=== PATIENT | male | born 1995 | race Caucasian/White ===

== ENCOUNTER 2019-04-22 05:21 | Emergency (ER) | payer OTHER ==
[2019-04-22 05:32] VITALS: RESP 18
[2019-04-22] MEDS ORDERED: SODIUM CHLORIDE 0.9% 1,000 ML IV STA (05:57)
--- NOTE | 2019-04-22 06:01 | ED ---
Syncope HPI - General Chief Complaint: Syncope Stated Complaint: Sycope/Seizure Time Seen by Provider: 04/22/19 05:50 Source: patient, family Mode of arrival: ambulatory Limitations: no limitations - History of Present Illness Initial Comments: This patient is 24-year-old man who presents to be evaluated after syncopal episode. The patient states that he had gotten up to use the bathroom this morning and then had passed out. He had been feeling lightheaded prior to this. Patient states that he had actually lowered himself to his knee because he felt funny and then ended up passing out. Was observed by bystanders and was on the order of about 30 seconds. There was no tonic-clonic activity. There was no postictal period. Patient states that he been feeling a bit nauseated and had not eaten dinner last night though he had a normal breakfast and lunch. Patient did not have any vomiting. No bloody or dark tarry stools. No chest pain, pa lpitations, or dyspnea. MD Complaint: loss of consciousness, collapsed Onset/Timin -: hour(s) Prodromal Symptoms: lightheaded Duration of Episode: 30 -: second(s) Injuries Sustained Associated with Event: None Current Symptoms: back to baseline Context: standing up Treatments Prior to Arrival: none - Related Data Allergies Allergy/AdvReac Type Severity Reaction Status Date / Time No Known Allergies Allergy Verified 04/22/19 05:33 Review of Systems ROS Statement: Those systems with pertinent positive or pertinent negative responses have been documented in the HPI. ROS Other: All systems not noted in ROS Statement are negative. Constitutional: Denies: fever, chills Respiratory: Denies: cough, dyspnea Cardiovascular: Reports: syncope. Denies: chest pain, palpitations, orthopnea Gastrointestinal: Reports: nausea. Denies: abdominal pain, vomiting, melena, hematochezia Genitourinary: Denies: dysuria, hematuria Musculoskeletal: Denies: back pain Skin: Denies: rash Neurological: Denies: headache, weakness, numbness Past Medical History Past Medical History: No Reported History History of Any Multi-Drug Resistant Organisms: None Reported Past Surgical History: No Surgical Hx Reported Past Psychological History: No Psychological Hx Reported Smoking Status: Never smoker Past Alcohol Use History: None Reported Past Drug Use History: Marijuana General Exam Limitations: no limitations General appearance: alert, in no apparent distress Head exam: Present: atraumatic, normocephalic Eye exam: Present: normal appearance. Absent: scleral icterus, conjunctival injection ENT exam: Present: normal oropharynx Neck exam: Present: normal inspection, full ROM Respiratory exam: Present: normal lung sounds bilaterally. Absent: respiratory distress, wheezes, rales, rhonchi, stridor Cardiovascular Exam: Present: regular rate, normal rhythm, normal heart sounds. Absent: systolic murmur, diastolic murmur, rubs, gallop GI/Abdominal exam: Present: soft. Absent: distended, tenderness, guarding, rebound, rigid, mass Extremities exam: Present: normal inspection, normal capillary refill. Absent: pedal edema, calf tenderness Back exam: Present: normal inspection. Absent: CVA tenderness (R), CVA tenderness (L) Neurological exam: Present: alert, oriented X3, CN II-XII intact. Absent: motor sensory deficit Skin exam: Present: warm, dry, intact, normal color. Absent: rash Course Vital Signs 04/22/19 05:28 Temperature 97.9 F Pulse Rate 80 Respiratory 18 Rate Blood Pressure 115/68 O2 Sat by Pulse 100 Oximetry EKG Findings - EKG Results: EKG: interpreted by ERMD, sinus rhythm (With sinus arrhythmia, rate 58 bpm), normal axis, normal QRS, normal ST/T EKG shows: bradycardia Disposition Clinical Impression: Vasovagal syncope, Shortened [place] interval Disposition: HOME SELF-CARE Condition: Good Instructions (If sedation given, give patient instructions): Syncope (ED) Is patient prescribed a controlled substance at d/c from ED?: No Referrals: Donaldo Rosas MD [Primary Care Provider] - 1-2 days Christopher Eckert MD [STAFF PHYSICIAN] - 1-2 days
[2019-04-22 06:21] LABS: Basophils % (A) 1 %; Eosinophils # (A) 0.1 k/uL (0-0.7); Eosinophils % (A) 2 %; HCT 41.4 % (39.0-53.0); HGB 13.9 gm/dL (13.0-17.5); Lymphocytes # (A) 1.9 k/uL (1.0-4.8); Lymphocytes % (A) 39 %; MCH 29.4 pg (25.0-35.0); MCHC 33.5 g/dL (31.0-37.0); MCV 87.8 fL (80.0-100.0); Mean Platelet Volume 7.2; Monocytes # (A) 0.3 k/uL (0-1.0); Monocytes % (A) 5 %; Neutrophils # (A) 2.5 k/uL (1.3-7.7); Neutrophils % (A) 52 %; Platelet Count 184 k/uL (150-450); RBC 4.72 m/uL (4.30-5.90); RDW 12.8 % (11.5-15.5); WBC 4.9 k/uL (3.8-10.6)
[2019-04-22 06:41] LABS: ALT 17 U/L (21-72); AST 18 U/L (17-59); Albumin 4.5 g/dL (3.5-5.0); Alkaline Phosphatase 51 U/L (38-126); Anion Gap 9 mmol/L; Blood Urea Nitrogen 12 mg/dL (9-20); Calcium 9.5 mg/dL (8.4-10.2); Carbon Dioxide 28 mmol/L (22-30); Chloride 104 mmol/L (98-107); Glucose 103 mg/dL (74-99); Magnesium 1.8 mg/dL (1.6-2.3); Potassium 3.6 mmol/L (3.5-5.1); Sodium 141 mmol/L (137-145); Total Bilirubin 0.5 mg/dL (0.2-1.3)
[2019-04-22 06:58] LABS: Appearance,Urine Cloudy (Clear); Bacteria,Urine Rare /hpf; Bilirubin,Urine Negative (Negative); Blood,Urine Negative (Negative); Color,Urine Yellow; Glucose,Urine (UA) Negative (Negative); Ketones,Urine Negative (Negative); Leukocyte Esterase,Urine Negative (Negative); Mucus,Urine Many /hpf; Nitrite,Urine Negative (Negative); Protein,Urine Negative (Negative); Specific Gravity,Urine 1.018 (1.001-1.035); Squamous Epithelial Cell,Urine <1 /hpf (0-4); Urobilinogen,Urine <2.0 mg/dL (<2.0); WBC,Urine 1 /hpf (0-5)
--- NOTE | 2019-04-22 07:26 | XR ---
EXAMINATION TYPE: XR chest 1V portable DATE OF EXAM: 04/22/2019 HISTORY: syncope. REFERENCE: NONE. FINDINGS: The lungs are clear. Pleural spaces are clear. The heart is not enlarged. IMPRESSION: NO ACTIVE INTRATHORACIC DISEASE.
[2019-04-22 07:51] VITALS: BP 114/75; PULSE 64; TEMP 98.8
== END 2019-04-22 07:50 | disposition home or self-care (01) ==
LOC: EC 05:21
DX: R55 Syncope and collapse (principal); R94.31 Abnormal electrocardiogram [ECG] [EKG]; R42 Dizziness and giddiness; R56.9 Unspecified convulsions
CPT/HCPCS: 36415; 71045; 80053; 81001; 83735; 84484; 85025; 85379; 93005; 96360; 96361; 99284

== ENCOUNTER 2019-06-08 05:58 | Emergency (ER) | payer OTHER ==
[2019-06-08 06:36] VITALS: RESP 16
[2019-06-08] MEDS ORDERED: LORazepam 1 MG TAB PO STA (07:38)
--- NOTE | 2019-06-08 07:39 | ED ---
General Adult HPI - General Chief complaint: Anxiety Stated complaint: Insomnia/Discomfort Time Seen by Provider: 06/08/19 07:00 Source: patient, RN notes reviewed Mode of arrival: ambulatory Limitations: no limitations - History of Present Illness Initial comments: This is a 24-year-old male who presents emergency Department complaining of having some weird feelings in his body and he was pre-confident home that something bad was going on. Patient states he does have a panic and anxiety problem but states it is usually under control. Patient states he was unable to sleep he kept thinking about his fatigue and some of the tingling sensations he was having he decided to come to the emergency department. Patient states he also was nauseated home. Patient states currently has no symptoms whatsoever. Recent denies any headache currently patient denies numbness weakness. Patient denies any chest pain difficulty breathing shortness of breath. Patient denies any fever chills per patient denies abdominal pain patient denies nausea vomiting diarrhea. - Related Data Allergies Allergy/AdvReac Type Severity Reaction Status Date / Time No Known Allergies Allergy Verified 04/22/19 05:33 Review of Systems ROS Statement: Those systems with pertinent positive or pertinent negative responses have been documented in the HPI. ROS Other: All systems not noted in ROS Statement are negative. Past Medical History Past Medical History: No Reported History History of Any Multi-Drug Resistant Organisms: None Reported Past Surgical History: No Surgical Hx Reported Past Psychological History: No Psychological Hx Reported Smoking Status: Never smoker Past Alcohol Use History: None Reported Past Drug Use History: Marijuana General Exam - General Exam Comments Initial Comments: GENERAL: Patient is well-developed and well-nourished. Patient is nontoxic and well- hydrated and is in no acute distress. ENT: Neck is soft and supple. No significant lymphadenopathy is noted. Oropharynx is clear. Moist mucous membranes. Neck has full range of motion without eliciting any pain. EYES: The sclera were anicteric and conjunctiva were pink and moist. Extraocular movements were intact and pupils were equal round and reactive to light. Eyelids were unremarkable. PULMONARY: Unlabored respirations. Good breath sounds bilaterally. No audible rales rhonchi or wheezing was noted. CARDIOVASCULAR: There is a regular rate and rhythm without any murmurs gallops or rubs. ABDOMEN: Soft and nontender with normal bowel sounds. No palpable organomegaly was noted. There is no palpable pulsatile mass. SKIN: Skin is clear with no lesions or rashes and otherwise unremarkable. NEUROLOGIC: Patient is alert and oriented x3. Cranial nerves II through XII are grossly int act. Motor and sensory are also intact. Normal speech, volume and content. Symmetrical smile. MUSCULOSKELETAL: Normal extremities with adequate strength and full range of motion. No lower extremity swelling or edema. No calf tenderness. LYMPHATICS: No significant lymphadenopathy is noted PSYCHIATRIC: Mildly anxious Limitations: no limitations Course Vital Signs 06/08/19 06:31 Temperature 97.9 F Pulse Rate 98 Respiratory 16 Rate Blood Pressure 108/77 O2 Sat by Pulse 98 Oximetry Disposition Clinical Impression: Acute anxiety Disposition: HOME SELF-CARE Condition: Good Instructions (If sedation given, give patient instructions): Generalized Anxiety Disorder (ED) Is patient prescribed a controlled substance at d/c from ED?: No Referrals: Donaldo Rosas MD [Primary Care Provider] - 1-2 days Time of Disposition: 07:39
[2019-06-08 07:55] VITALS: BP 120/85; PULSE 76; TEMP 98
== END 2019-06-08 07:53 | disposition home or self-care (01) ==
LOC: EC 05:58
DX: F41.9 Anxiety disorder, unspecified (principal)
CPT/HCPCS: 99283

== ENCOUNTER 2021-02-05 12:57 | Emergency (ER) | payer OTHER ==
[2021-02-05 13:03] VITALS: BP 114/72; PULSE 95; RESP 16; TEMP 98
[2021-02-05] MEDS ORDERED: ONDANSETRON ODT 4 MG TAB PO STA (13:23)
[2021-02-05] MEDS ORDERED: ACETAMINOPHEN TAB 500 MG TAB PO STA (13:23)
--- NOTE | 2021-02-05 13:53 | ED ---
General Adult HPI - General Chief complaint: Headache Stated complaint: Dizziness,Headache Source: patient Mode of arrival: ambulatory Limitations: no limitations - History of Present Illness Initial comments: 25-year-old male with past history presents emergency Department with reported headaches and visual changes. Patient reports to a head injury on Wednesday morning. Was attempting to get ready for the day when he hit his head on the door frame. Denies loss of consciousness. Reports to a mild headache which has progressively gotten worse. Also admits to vertiginous symptoms. Was attempting to play videogames with his friend last night and had to stop as he was getting dizzy. Admits to nausea without vomiting. Has not taken any medications for his headache. Patient has not any blood thinners. No unilateral numbness or weakness in his arms or legs. No gait difficulties. No neck pain. No other alleviating, precipitating or modifying. - Related Data Home Medications Medication Instructions Recorded Confirmed Multivit-Min/Folic/Vit K/Lycop 1 tab PO DAILY 06/08/19 06/08/19 [Men's Multivitamin Tablet] Allergies Allergy/AdvReac Type Severity Reaction Status Date / Time FRUIT Allergy Itching Uncoded 02/05/21 13:02 Review of Systems ROS Statement: Those systems with pertinent positive or pertinent negative responses have been documented in the HPI. ROS Other: All systems not noted in ROS Statement are negative. Past Medical History Past Medical History: No Reported History History of Any Multi-Drug Resistant Organisms: None Reported Past Surgical History: No Surgical Hx Reported Past Psychological History: Anxiety, Panic Disorder Smoking Status: Former smoker Past Alcohol Use History: Rare Past Drug Use History: Marijuana General Exam Limitations: no limitations General appearance: alert, in no apparent distress Head exam: Present: atraumatic, normocephalic, normal inspection Eye exam: Present: normal appearance, PERRL, EOMI. Absent: scleral icterus, conjunctival injection, periorbital swelling ENT exam: Present: normal exam, mucous membranes moist Neck exam: Present: normal inspection. Absent: tenderness, meningismus, lymphadenopathy Respiratory exam: Present: normal lung sounds bilaterally. Absent: respiratory distress, wheezes, rales, rhonchi, stridor Cardiovascular Exam: Present: regular rate, normal rhythm, normal heart sounds. Absent: systolic murmur, diastolic murmur, rubs, gallop, clicks GI/Abdominal exam: Present: soft, normal bowel sounds. Absent: distended, tenderness, guarding, rebound, rigid Extremities exam: Present: normal inspection, full ROM, normal capillary refill. Absent: tenderness, pedal edema, joint swelling, calf tenderness Back exam: Present: normal inspection Neurological exam: Present: alert, oriented X3, CN II-XII intact Psychiatric exam: Present: normal affect, normal mood Skin exam: Present: warm, dry, intact, normal color. Absent: rash Course Vital Signs 02/05/21 13:00 Temperature 98.0 F Pulse Rate 95 Respiratory 16 Rate Blood Pressure 114/72 O2 Sat by Pulse 98 Oximetry Medical Decision Making - Medical Decision Making Upon arrival the patient is placed into room 33. A thorough history and physical exam was performed. Due to the patient reporting that his symptoms are worsening a CT of his brain was performed which demonstrates no acute injury Greenough process. Patient was given Tylenol and Zofran in the emergency department. I did discuss diagnosis, differential and treatment options. At this time the patient must follow-up with primary care doctor within 2-4 days. Alternate taking Motrin and Tylenol for pain control. Patient can also take Zofran for his nausea. He is instructed not to engage in contacts sports or other activies as to avoid further injury. Return to the emergency room for any new or worsening symptoms. If his symptoms persist you may need to see a neurologist. Patient agreed to this and was discharged home ambulatory in stable condition Disposition Clinical Impression: Head injury, Concussion Disposition: HOME SELF-CARE Condition: Stable Instructions (If sedation given, give patient instructions): Post Concussion Syndrome (ED) Additional Instructions: Please follow up with your primary care doctor in regards to your symptoms within the next 2-4 days. Alternate taking Motrin and Tylenol for pain control. If your symptoms progressed you may need to see a neurologist Is patient prescribed a controlled substance at d/c from ED?: No Referrals: Karin Tsai MD [Primary Care Provider] - 1-2 days Time of Disposition: 14:44
--- NOTE | 2021-02-05 14:26 | CT ---
EXAMINATION TYPE: CT brain wo con DATE OF EXAM: 02/05/2021 COMPARISON: None. HISTORY: headache, dizziness, x2 days post trauma CT DLP: 1076.4 mGycm. Automated Exposure Control for Dose Reduction was Utilized. TECHNIQUE: CT scan of the head is performed without contrast. FINDINGS: There is no acute intracranial hemorrhage, mass effect, or midline shift identified. The ventricles and sulci are within normal limits in size. The globes are intact and the visualized sin uses are clear. The calvarium is intact. No suspicious opacification mastoid air cells. There is 8mm calcified right scalp lesion presumed benign or dermatologic in etiology. IMPRESSION: No acute intracranial hemorrhage or midline shift is seen.
[2021-02-05] MEDS ORDERED: ONDANSETRON 4 MG ODT STARTER PACK 2 TAB BTL PO STA (14:42)
== END 2021-02-05 15:02 | disposition home or self-care (01) ==
LOC: EC 12:57
DX: S06.0X9A Concussion with loss of consciousness of unspecified duration, initial encounter (principal); F41.9 Anxiety disorder, unspecified; Z87.891 Personal history of nicotine dependence; W22.8XXA Striking against or struck by other objects, initial encounter
CPT/HCPCS: 70450; 99284; S0119

== ENCOUNTER 2021-03-04 08:55 | Emergency (ER) | payer OTHER ==
--- NOTE | 2021-03-04 09:25 | ED ---
URI HPI - General Chief Complaint: Upper Respiratory Infection Stated Complaint: covid+/increase SOB Time Seen by Provider: 03/04/21 08:59 Source: patient Mode of arrival: ambulatory Limitations: no limitations - History of Present Illness Initial Comments: 26-year-old male presents emergency department today for chief complaint of shortness of breath x today. Patient states that he had been diagnosed wtih covid on February 14 after being swabbed and having symptoms since 02/12. patient states he has mostly had headaches, sore throat-upper symptoms and not so much dyspnea in the beginning. he states about a week ago he noted that he was becoming more short of breath than usual, but nothing very significant. pt states he was at work today when he went to set up his station and became very short of breath,. he state he began talking to a co-worker and had difficulty secondary to the shortness of breath. Dneies leg swelling, hemoptysis, chest pain, nausea, vomiting, fevers, diarrhea. Patietn denies any significant cough. Patient on arrival appears well nontoxic in no acute distress. HR is elevated at 102 bpm. - Related Data Home Medications Medication Instructions Recorded Confirmed Multivit-Min/Folic/Vit K/Lycop 1 tab PO DAILY 06/08/19 03/04/21 [Men's Multivitamin Tablet] Allergies Allergy/AdvReac Type Severity Reaction Status Date / Time FRUIT Allergy Itching Uncoded 03/04/21 10:14 Review of Systems ROS Statement: Those systems with pertinent positive or pertinent negative responses have been documented in the HPI. ROS Other: All systems not noted in ROS Statement are negative. Past Medical History Past Medical History: No Reported History History of Any Multi-Drug Resistant Organisms: None Reported Past Surgical History: No Surgical Hx Reported Past Psychological History: Anxiety, Panic Disorder Smoking Status: Former smoker Past Alcohol Use History: Rare Past Drug Use History: Marijuana General Exam - General Exam Comments Initial Comments: General: The patient is awake and alert, in no distress Eye: +3 mm pupils are equal, round and reactive to light, extra-ocular movements are intact. No nystagmus. There is normal conjunctiva bilaterally. No signs of icterus. Ears, nose, mouth and throat: There are moist mucous membranes and no oral lesions. Neck: The neck is supple, there is no tenderness or JVD. Cardiovascular: There is a regular rate and rhythm. No murmur, rub or gallop is appreciated. Respiratory: Lungs are clear to auscultation, respirations are non-labored, breath sounds are equal. No wheezes, stridor, rales, or rhonchi. Gastrointestinal: Soft, non-distended, non-tender abdomen without masses or organomegaly noted. There is no rebound or guarding present. Musculoskeletal: Normal ROM, no tenderness. Strength 5/5. Sensation intact. Radial pulses equal bilaterally 2+. Neurological: A&O x 3. CN II-XII intact grossly, There are no obvious motor or sensory deficits. Coordination appears grossly intact. Speech is normal. Skin: Skin is warm and dry and no rashes or lesions are noted. No calf pain/or LE edema. Psychiatric: Cooperative, appropriate mood & affect, normal judgment. Limitations: no limitations Course Vital Signs 03/04/21 03/04/21 08:57 10:45 Temperature 97.4 F L 98 F Pulse Rate 102 H 86 Respiratory 20 18 Rate Blood Pressure 128/81 107/72 O2 Sat by Pulse 99 97 Oximetry Medical Decision Making - Medical Decision Making Labs stable.dimer (-) no extremity findings. EKG no acute findings. patient oxygenating well on RA. no distress. with clear lungs sounds. pt states has has been paranoid. patient discharged appearing well. Attending and patient agreeable to care plan. Ventricular rate 76 bpm, [place] interval 100.6 pulse seconds, QRS scientology 86 pulse seconds, QT/QTC 350/393 ms. This is normal sinus there is no ST elevation or depression present - Lab Data Result diagrams: 03/04/21 09:26 03/04/21 09:26 Lab Results 03/04/21 03/04/21 03/04/21 Range/Units 09:26 09:26 09:26 WBC 4.6 (3.8-10.6) k/uL RBC 4.75 (4.30-5.90) m/uL Hgb 14.4 (13.0-17.5) gm/dL Hct 41.6 (39.0-53.0) % MCV 87.7 (80.0-100.0) fL MCH 30.4 (25.0-35.0) pg MCHC 34.7 (31.0-37.0) g/dL RDW 12.1 (11.5-15.5) % Plt Count 205 (150-450) k/uL MPV 7.4 Neutrophils % 52 % Lymphocytes % 40 % Monocytes % 5 % Eosinophils % 1 % Basophils % 1 % Neutrophils # 2.4 (1.3-7.7) k/uL Lymphocytes # 1.8 (1.0-4.8) k/uL Monocytes # 0.2 (0-1.0) k/uL Eosinophils # 0.0 (0-0.7) k/uL Basophils # 0.0 (0-0.2) k/uL D-Dimer 0.20 (<0.60) mg/L FEU Sodium 137 (137-145) mmol/L Potassium 4.3 (3.5-5.1) mmol/L Chloride 100 (98-107) mmol/L Carbon Dioxide 30 (22-30) mmol/L Anion Gap 7 mmol/L BUN 17 (9-20) mg/dL Creatinine 1.05 (0.66-1.25) mg/dL Est GFR (CKD-EPI)AfAm >90 (>60 ml/min/1.73 sqM) Est GFR (CKD-EPI)NonAf >90 (>60 ml/min/1.73 sqM) Glucose 79 (74-99) mg/dL Calcium 9.5 (8.4-10.2) mg/dL Total Bilirubin 0.8 (0.2-1.3) mg/dL AST 22 (17-59) U/L ALT 13 (4-49) U/L Alkaline Phosphatase 57 (38-126) U/L Troponin I (0.000-0.034) ng/mL Total Protein 7.5 (6.3-8.2) g/dL Albumin 4.6 (3.5-5.0) g/dL 03/04/21 Range/Units 09:26 WBC (3.8-10.6) k/uL RBC (4.30-5.90) m/uL Hgb (13.0-17.5) gm/dL Hct (39.0-53.0) % MCV (80.0-100.0) fL MCH (25.0-35.0) pg MCHC (31.0-37.0) g/dL RDW (11.5-15.5) % Plt Count (150-450) k/uL MPV Neutrophils % % Lymphocytes % % Monocytes % % Eosinophils % % Basophils % % Neutrophils # (1.3-7.7) k/uL Lymphocytes # (1.0-4.8) k/uL Monocytes # (0-1.0) k/uL Eosinophils # (0-0.7) k/uL Basophils # (0-0.2) k/uL D-Dimer (<0.60) mg/L FEU Sodium (137-145) mmol/L Potassium (3.5-5.1) mmol/L Chloride (98-107) mmol/L Carbon Dioxide (22-30) mmol/L Anion Gap mmol/L BUN (9-20) mg/dL Creatinine (0.66-1.25) mg/dL Est GFR (CKD-EPI)AfAm (>60 ml/min/1.73 sqM) Est GFR (CKD-EPI)NonAf (>60 ml/min/1.73 sqM) Glucose (74-99) mg/dL Calcium (8.4-10.2) mg/dL Total Bilirubin (0.2-1.3) mg/dL AST (17-59) U/L ALT (4-49) U/L Alkaline Phosphatase (38-126) U/L Troponin I <0.012 (0.000-0.034) ng/mL Total Protein (6.3-8.2) g/dL Albumin (3.5-5.0) g/dL Disposition Clinical Impression: COVID-19, Dyspnea Disposition: HOME SELF-CARE Condition: Good Instructions (If sedation given, give patient instructions): Coronavirus Disease 2019 (COVID-19) Additional Instructions: Please use medication as discussed. Please follow-up with family doctor in the next 2 days. recommend outpatient echo if symptoms persistent. Please return to emergency room if the symptoms increase or worsen or for any other concerns. Is patient prescribed a controlled substance at d/c from ED?: No Referrals: Karin Tsai MD [Primary Care Provider] - 1-2 days Time of Disposition: 09:59
[2021-03-04 09:41] LABS: Basophils % (A) 1 %; Eosinophils % (A) 1 %; HCT 41.6 % (39.0-53.0); HGB 14.4 gm/dL (13.0-17.5); Lymphocytes # (A) 1.8 k/uL (1.0-4.8); Lymphocytes % (A) 40 %; MCH 30.4 pg (25.0-35.0); MCHC 34.7 g/dL (31.0-37.0); MCV 87.7 fL (80.0-100.0); Mean Platelet Volume 7.4; Monocytes # (A) 0.2 k/uL (0-1.0); Monocytes % (A) 5 %; Neutrophils # (A) 2.4 k/uL (1.3-7.7); Neutrophils % (A) 52 %; Platelet Count 205 k/uL (150-450); RBC 4.75 m/uL (4.30-5.90); RDW 12.1 % (11.5-15.5); WBC 4.6 k/uL (3.8-10.6)
[2021-03-04 09:51] LABS: ALT 13 U/L (4-49); AST 22 U/L (17-59); African American GFR (CKD) >90 (>60 ml/min/1.73 sqM); Albumin 4.6 g/dL (3.5-5.0); Alkaline Phosphatase 57 U/L (38-126); Anion Gap 7 mmol/L; Blood Urea Nitrogen 17 mg/dL (9-20); Calcium 9.5 mg/dL (8.4-10.2); Carbon Dioxide 30 mmol/L (22-30); Chloride 100 mmol/L (98-107); Glucose 79 mg/dL (74-99); Non-African American GFR(CKD) >90 (>60 ml/min/1.73 sqM); Potassium 4.3 mmol/L (3.5-5.1); Sodium 137 mmol/L (137-145); Total Bilirubin 0.8 mg/dL (0.2-1.3); Total Protein 7.5 g/dL (6.3-8.2)
--- NOTE | 2021-03-04 09:54 | XR ---
EXAMINATION TYPE: XR chest 1V portable DATE OF EXAM: 03/04/2021 Comparison: 04/22/2019 Clinical History: 26-year-old male covid dyspnea Findings: The cardiomediastinal silhouette, aorta, and pulmonary vasculature are within normal limits. Lungs and pleural spaces are clear. Impression: No acute cardiopulmonary process.
[2021-03-04 10:46] VITALS: BP 107/72; PULSE 86; RESP 18; TEMP 98
== END 2021-03-04 10:47 | disposition home or self-care (01) ==
LOC: EC 08:55
DX: U07.1 COVID-19 (principal); F41.9 Anxiety disorder, unspecified; F12.90 Cannabis use, unspecified, uncomplicated; Z87.891 Personal history of nicotine dependence
CPT/HCPCS: 36415; 71045; 80053; 84484; 85025; 85379; 93005; 99285

== ENCOUNTER 2021-04-09 00:45 | Emergency (ER) | payer OTHER ==
[2021-04-09 00:50] VITALS: TEMP 97.8
--- NOTE | 2021-04-09 01:16 | ED ---
SOB HPI - General Chief Complaint: Shortness of Breath Stated Complaint: SOB Time Seen by Provider: 04/09/21 01:03 Source: patient Mode of arrival: ambulatory Limitations: no limitations - History of Present Illness Initial Comments: 26 year-old male patient presents to the emergency department for evaluation of shortness of breath that started about an hour ago. Patient states he laid down to go to sleep and felt pressure on his chest and started to have trouble breathing. Patient states that he felt "woozy" and tired throughout the day. Did get his second dose of [employer] COVID vaccine yesterday. States he had a mild pain in his right shoulder when symptoms started. Denies any cough. Denies any fever or chills. Denies nausea or vomiting. Denies any rash. States that he did have Covid about 55 days ago. States that his doctor put him on dexamethasone recently for some lingering symptoms. Patient denies any recent abdominal pain, diarrhea, constipation, back pain, numbness, tingling, hematuria, dysuria, urinary urgency, urinary frequency, headache, visual changes, or any other complaints. - Related Data Home Medications Medication Instructions Recorded Confirmed Multivit-Min/Folic/Vit K/Lycop 1 tab PO DAILY 06/08/19 03/04/21 [Men's Multivitamin Tablet] Allergies Allergy/AdvReac Type Severity Reaction Status Date / Time FRUIT Allergy Itching Uncoded 04/09/21 00:50 Review of Systems ROS Statement: Those systems with pertinent positive or pertinent negative responses have been documented in the HPI. ROS Other: All systems not noted in ROS Statement are negative. Past Medical History Past Medical History: No Reported History Additional Past Medical History / Comment(s): covid 02/09 History of Any Multi-Drug Resistant Organisms: None Reported Past Surgical History: No Surgical Hx Reported Past Psychological History: Anxiety, Panic Disorder Smoking Status: Former smoker Past Alcohol Use History: Rare Past Drug Use History: Marijuana General Exam Limitations: no limitations General appearance: alert, in no apparent distress, other (Physical well- developed, well-nourished adult male patient in no acute distress. Vital signs upon presentation are temperature 97.8F, pulse 93, respirations 22, blood pressure 146/89, pulse ox 97% on room air.) Eye exam: Present: normal appearance, PERRL, EOMI. Absent: scleral icterus, conjunctival injection, periorbital swelling ENT exam: Present: normal exam, normal oropharynx, mucous membranes moist Respiratory exam: Present: normal lung sounds bilaterally. Absent: respiratory distress, wheezes, rales, rhonchi, stridor Cardiovascular Exam: Present: regular rate, normal rhythm, normal heart sounds. Absent: systolic murmur, diastolic murmur, rubs, gallop, clicks GI/Abdominal exam: Present: soft, normal bowel sounds. Absent: distended, tenderness, guarding, rebound, rigid Neurological exam: Present: alert, oriented X3, CN II-XII intact Psychiatric exam: Present: normal affect, normal mood Skin exam: Present: warm, dry, intact, normal color. Absent: rash Course Vital Signs 04/09/21 04/09/21 00:45 02:32 Temperature 97.8 F 97.8 F Pulse Rate 93 78 Respiratory 22 18 Rate Blood Pressure 146/89 148/81 O2 Sat by Pulse 97 98 Oximetry Medical Decision Making - Medical Decision Making 26-year-old male patient presents to the emergency department today for evaluation of shortness of breath and some right shoulder discomfort. Physical examination is unremarkable. Lungs are clear to auscultation with good air movement. He is in no respiratory distress. Vital signs are normal. Chest x- ray is negative. EKG is unremarkable. I did discuss findings and results with the patient. We did discuss is possibly having reaction to his second COVID-19 vaccine. He is instructed to follow-up with his primary care physician for rech joseph tomorrow. Return parameters were discussed in detail. He verbalizes understanding and agrees with this plan. Case discussed with my attending Dr. Hussein. - EKG Data -: EKG Interpreted by Me EKG Comments: EKG obtained at 12 12 shows normal sinus rhythm with a ventricular rate of 66, OR interval 116, QRS duration 94, QT 362, QTc 02[birth year]22/1979. No evidence of ST elevation or depression. - Radiology Data Radiology results: report reviewed, image reviewed 2 views of the chest are obtained. Report was reviewed in its entirety. Impression by Dr. Delgado shows no acute cardio pulmonary process. Disposition Clinical Impression: Shortness of breath Disposition: HOME SELF-CARE Condition: Good Instructions (If sedation given, give patient instructions): Helena baker (ED) Additional Instructions: Follow-up with your primary care physician for recheck in 1-2 days. Return to the emergency department for any new, worsening, or concerning symptoms. Is patient prescribed a controlled substance at d/c from ED?: No Referrals: Karin Tsai MD [Primary Care Provider] - 1-2 days Time of Disposition: 02:15
--- NOTE | 2021-04-09 01:45 | XR ---
EXAM: XR Chest, 2 Views CLINICAL HISTORY: ITS.REASON XR Reason: Shortness of breath TECHNIQUE: Frontal and lateral views of the chest. COMPARISON: No relevant prior studies available. FINDINGS: Lungs: No consolidation or mass. Pleural space: No effusion. Heart: No cardiomegaly. Bones/joints: No acute findings. IMPRESSION: No acute cardiopulmonary process.
[2021-04-09 02:33] VITALS: BP 148/81; PULSE 78; RESP 18
== END 2021-04-09 02:32 | disposition home or self-care (01) ==
LOC: EC 00:45
DX: R06.02 Shortness of breath (principal); R07.89 Other chest pain; R42 Dizziness and giddiness; M25.511 Pain in right shoulder; F41.9 Anxiety disorder, unspecified; F12.90 Cannabis use, unspecified, uncomplicated; Z87.891 Personal history of nicotine dependence; Z86.16 Personal history of COVID-19
CPT/HCPCS: 71046; 93005; 99285

== ENCOUNTER 2021-06-12 13:10 | Emergency (ER) | payer OTHER ==
[2021-06-12 13:28] VITALS: RESP 18
--- NOTE | 2021-06-12 14:47 | ED ---
General Adult HPI - General Chief complaint: Chest Pain Stated complaint: BEN Time Seen by Provider: 06/12/21 13:54 Source: patient Mode of arrival: ambulatory Limitations: no limitations - History of Present Illness Initial comments: Dictation was produced using [employer] dictation software. please excuse any grammatical, word or spelling errors. Chief Complaint: 26-year-old male presents to the emergency department for chest pain History of Present Illness: 26-year-old male he states he was working out recently. There are chest workout. States that ever since he recovered from Covid several months ago he's been having achy muscles whenever he exercises. Patient states that his pain is left anterior chest sharp in nature and worse with deep inspiration. Patient states he does have a dry cough. No sore throat. No runny nose. Denies any constitutional symptoms. no History of asthma. No smoking. The ROS documented in this emergency department record has been reviewed and confirmed by me. Those systems with pertinent positive or negative responses have been documented in the HPI. All other systems are other negative and/or noncontributory. PHYSICAL EXAM: General Impression: Alert and oriented x3, not in acute distress HEENT: Normocephalic atraumatic, extra-ocular movements intact, pupils equal and reactive to light bilaterally, mucous membranes moist. Cardiovascular: Heart regular rate and rhythm Chest: Able to complete full sentences, no retractions, no tachypnea Abdomen: abdomen soft, non-tender, non-distended, no organomegaly Musculoskeletal: Pulses present and equal in all extremities, no peripheral edema Motor: no focal deficits noted Neurological: CN II-XII grossly intact, no focal motor or sensory deficits noted Skin: Intact with no visualized rashes Psych: Normal affect and mood ED course: 26-year-old male presents to the emergency department for atypical chest pain. Signs upon arrival shows heart rate of 112 rest of vital signs within acceptable limits. EKG shows no acute processes. Lavatory evaluation obtained. D-dimer is negative. 4 panel viral PCR is negative. Chest x-ray is nonacute. Patient reevaluated at bedside at 4:13 PM found to be in stable medical condition. Clinical presentation consistent with pleurisy. No obvious source. Patient will be discharged. Told to follow-up with primary care doctor EKG interpretation: Ventricular rate 99, sinus rhythm,. Interval 110, QRS 80, QTC 423. No AR prolongation, no QTC prolongation, no ST or T-wave changes noted. . Overall, this EKG is unremarkable - Related Data Home Medications Medication Instructions Recorded Confirmed Multivit-Min/Folic/Vit K/Lycop 1 tab PO DAILY 06/08/19 03/04/21 [Men's Multivitamin Tablet] Allergies Allergy/AdvReac Type Severity Reaction Status Date / Time dexamethasone AdvReac Unknown Verified 06/12/21 13:26 FRUIT Allergy Itching Uncoded 06/12/21 13:25 Review of Systems ROS Statement: Those systems with pertinent positive or pertinent negative responses have been documented in the HPI. ROS Other: All systems not noted in ROS Statement are negative. Past Medical History Past Medical History: No Reported History Additional Past Medical History / Comment(s): covid 02/09 History of Any Multi-Drug Resistant Organisms: None Reported Past Surgical History: No Surgical Hx Reported Past Psychological History: Anxiety, Panic Disorder Smoking Status: Former smoker Past Alcohol Use History: Rare Past Drug Use History: None Reported General Exam Limitations: no limitations Course Vital Signs 06/12/21 13:26 Temperature 98.6 F Pulse Rate 112 H Respiratory 18 Rate Blood Pressure 135/85 O2 Sat by Pulse 97 Oximetry Medical Decision Making - Lab Data Lab Results 06/12/21 06/12/21 Range/Units 14:54 14:56 PT 11.0 (9.0-12.0) sec INR 1.0 (<1.2) APTT 24.6 (22.0-30.0) sec D-Dimer <0.17 (<0.60) mg/L FEU Influenza Type A (PCR) Not Detected (Not Detectd) Influenza Type B (PCR) Not Detected (Not Detectd) RSV (PCR) Not Detected (Not Detectd) SARS-CoV-2 (PCR) Not Detected (Not Detectd) Disposition Clinical Impression: Chest pain Disposition: HOME SELF-CARE Condition: Good Instructions (If sedation given, give patient instructions): Chest Pain (ED) Is patient prescribed a controlled substance at d/c from ED?: No Referrals: Karin Tsai MD [Primary Care Provider] - 1-2 days
--- NOTE | 2021-06-12 15:09 | XR ---
EXAMINATION TYPE: XR chest 2V DATE OF EXAM: 06/12/2021 COMPARISON: 04/09/2021 HISTORY: cough TECHNIQUE: Frontal and lateral views of the chest are obtained. FINDINGS: There is no focal air space opacity, pleural effusion, or pneumothorax seen. The cardiac silhouette size is within normal limits. The osseous structures are intact. IMPRESSION: No acute cardiopulmonary process.
[2021-06-12 15:40] LABS: Partial Thromboplastin Time 24.6 sec (22.0-30.0)
[2021-06-12 16:26] VITALS: BP 118/72; PULSE 89; TEMP 98.2
== END 2021-06-12 16:27 | disposition home or self-care (01) ==
LOC: EC 13:10
DX: R07.1 Chest pain on breathing (principal); R06.00 Dyspnea, unspecified; R05 Cough; Z88.8 Allergy status to other drugs, medicaments and biological substances; Z91.018 Allergy to other foods; Z87.891 Personal history of nicotine dependence; Z20.822 Contact with and (suspected) exposure to COVID-19
CPT/HCPCS: 36415; 71046; 85379; 85610; 85730; 87636; 93005; 99285